=== PATIENT | male | born 1985 | race African-American/Black ===

== ENCOUNTER 2017-03-28 18:10 | Emergency (ER) | payer OTHER ==
[~2017-03-28] VITALS: Ht 182.9 cm; Wt 150.9 kg
[~2017-03-28 18:10] MED LIST: NAPROSYN500 MG PO
[2017-03-28 22:45] VITALS: BP 142/91
== END 2017-03-28 22:46 | disposition home or self-care (01) ==
LOC: EME 18:10
DX: S29.012A Strain of muscle and tendon of back wall of thorax, initial encounter (principal); S39.012A Strain of muscle, fascia and tendon of lower back, initial encounter; S20.219A Contusion of unspecified front wall of thorax, initial encounter; V49.40XA Driver injured in collision with unspecified motor vehicles in traffic accident, initial encounter
CPT/HCPCS: 71020; 72070; 72100; 99281; 99284

== ENCOUNTER 2017-12-21 08:52 | Emergency (ER) | payer SELFPAY ==
[~2017-12-21] VITALS: Ht 172.7 cm; Wt 154.5 kg
[2017-12-21 09:03] VITALS: BP 151/89
[2017-12-21] MEDS ORDERED: LIDODERM 5% P1 PATCH TD (10:10)
[2017-12-21] MEDS ORDERED: MOTRIN800 MG PO (10:10)
[2017-12-21] MEDS ORDERED: PREDNISONE20 MG PO (10:10)
[2017-12-21] MEDS ORDERED: FLEXERIL10 MG PO (10:10)
== END 2017-12-21 10:42 | disposition home or self-care (01) ==
LOC: EME 08:52
DX: M54.42 Lumbago with sciatica, left side (principal); M79.604 Pain in right leg
CPT/HCPCS: 72100; 99281; 99284; J1885; J7512